=== PATIENT | male | born 1980 | race Two or more races ===

== ENCOUNTER 2017-02-22 01:45 | Emergency (ER) | payer SELFPAY ==
[~2017-02-22] VITALS: Ht 172.7 cm; Wt 72.6 kg
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
--- NOTE | 2017-02-22 01:56 | NUR ---
NO [employer] ARRIVED WITH THE PT AND JUST LEFT.
--- NOTE | 2017-02-22 02:16 | NUR ---
DR. CHRISTIAN IS AT THE BEDSIDE SPEAKING TO THE PT.
[2017-02-22] MEDS ORDERED: diphenhydrAMINE HCL 50 MG/ML VIAL IM ONE (02:30)
[2017-02-22] MEDS ORDERED: OLANZAPINE 10 MG VIAL IM ONE ×2 (02:30→02:32)
[2017-02-22] MEDS ORDERED: diphenhydrAMINE HCL 50 MG/ML VIAL ONE (02:32)
--- NOTE | 2017-02-22 02:40 | NUR ---
PT ASKED WHAT THE LABS WOULD BE DRAWN AND WHAT THEY WERE FOR. ALL WAS EXPLAINED TO THE PT. PT RAISED HIS HANDS AND SAID OK TO LABS AND CXR. NOTIFED.
--- NOTE | 2017-02-22 02:40 | NUR ---
PT REFUSED MEDICATION AND BLOOD DRAW. DR. CHRISTIAN IS AWARE. PT WAS ASKED WHAT HE EXPECTED FROM US TODAY. PT STATED THAT HE JUST NEEDED TO BE QUIET. PT WAS TOLD HE COULD WAIT IN THE LOBBY IF HE WANTED TO REST AND BE QUIET. PT STATED THAT THE DOCTOR COULD EVALUATE HIM.
--- NOTE | 2017-02-22 02:42 | NUR ---
DR. CHRISTIAN IS AT THE BEDSIDE.
--- NOTE | 2017-02-22 03:19 | NUR ---
PT IS REFUSING BLOOD DRAW AGAIN, BUT AGREED TO CXR. NOTIFIED. DR. CHRISTIAN STATED THAT THE PT COULD LEAVE. SECURITY WAS CALLED AND PT IS BEING ESCORTED OUT OF THE ER.
--- NOTE | 2017-02-22 03:27 | NUR ---
PT DENIES SI AND HI. PT IS AMBULATORY WITH A STEADY GAIT. VSS
[2017-02-22 03:29] VITALS: BP 138/89
== END 2017-02-22 03:30 | disposition home or self-care (01) ==
LOC: EDSEX 01:47 → ER 01:47 → EDBD 01:47 → ER 03:30
DX: F15.10 Other stimulant abuse, uncomplicated (principal)
CPT/HCPCS: 99283; A4606; Z7610; J1200; J3490